=== PATIENT | male | born 1975 | race Caucasian/White ===

== ENCOUNTER 2023-11-13 08:21 | Emergency (ER) | payer OTHER, SELFPAY ==
--- NOTE | ~2023-11-13 | CT_ITS ---
EXAMINATION: CT abdomen pelvis w con INDICATION: Hematuria TECHNIQUE: Computed tomographic images of the abdomen and pelvis were obtained after the administrati on of 100 cc of Omnipaque 350 intravenous contrast. The dose-length product (DLP) was 1560.55 mGy-cm. Automated exposure control and iterative reconstruction technique were employed. COMPARISON: None available FINDINGS: Minimal dependent atelectasis is present in the lung bases. The heart size is normal. The l iver is diffusely low in attenuation when compared with the spleen, consistent with hepatic steatosis . The spleen, pancreas, gallbladder, and adrenal glands are normal. The right kidney is unremarkable. There is a 4 mm nonobstructing stone of the left kidney lower pole. No pathologically enlarged abdom inal or pelvic lymph nodes are identified. No free intraperitoneal gas or evidence of bowel obstructi on. The appendix is normal. There are bilateral renal hernias containing fat. IMPRESSION: 1. Nonobstructing left nephrolithiasis. 2. Diffuse hepatic steatosis. Reviewed, dictated and finalized at location [employer]
[2023-11-13 08:43] VITALS: BP 157/96; PULSE 76; RESP 18; TEMP 36.6; O2SAT 95
[2023-11-13 08:57] LABS: Glucose Point of Care 332 mg/dl (65-105)
[2023-11-13 09:17] LABS: Basophils Percent Auto 0.6 % (0.2-1.2); Eosinophils Absolute Auto 0.1 K/mm3 (0-0.3); Hematocrit 42.8 % (42.0-52.0); Hemoglobin 15.2 g/dL (14.0-18.0); Immature Granulocyte Absolute 0.05 K/mm3 (0.00-0.031); Immature Granulocyte Percent A 0.7 % (0-0.5); Lymphocytes Absolute Auto 1.52 K/mm3 (0.9-3.2); Lymphocytes Percent Auto 21.8 % (18.3-44.2); Mean Corpuscular HGB Conc 35.5 g/dl (32-36); Mean Corpuscular Hemoglobin 33.3 pg (26-34); Mean Corpuscular Volume 93.7 fl (80-100); Mean Platelet Volume 11.9 fl (7.4-10.4); Monocytes Absolute Auto 0.4 K/mm3 (0.1-0.6); Monocytes Percent Auto 6.2 % (2.6-8.5); Neutrophils Absolute Auto 4.8 K/mm3 (1.3-6.7); Neutrophils Percent Auto 68.7 % (45.5-73.1); Platelet Count Result 217 k/mm3 (150-375); Red Blood Count 4.57 M/mm3 (4.6-6.20); Red Cell Distribution Width 12.6 % (11.5-14.5)
[2023-11-13 09:30] LABS: Alanine Aminotransferase 56 U/L (6-50); Albumin Level 3.9 g/dL (3.5-5.1); Alkaline Phosphatase 63 U/L (38-126); Anion Gap 7 mmol/L (8-16); Aspartate Amino Transferase 43 U/L (17-59); Bilirubin,Total 0.8 mg/dL (0.2-1.3); Blood Urea Nitrogen 10 mg/dL (9-20); Calcium 9.2 mg/dL (8.4-10.2); Carbon Dioxide 24 mmol/L (22-30); Chloride 103 mmol/L (98-107); Estimated CRCL calculation 184 ml/min; Estimated Glomerular Filt Rate > 60; Glucose 277 mg/dL (65-110); Potassium 4.1 mmol/L (3.4-5.0); Sodium 134 mmol/L (137-145)
--- NOTE | 2023-11-13 09:48 | ED.RECABL ---
HPI - Recheck/Abnormal Lab/Rx General Chief Complaint: Recheck/Abnormal Lab/Rx Stated Complaint: high blood sugar Time Seen by Provider: 11/13/23 09:08 Source: patient Mode of arrival: ambulatory Limitations: no limitations History of Present Illness HPI narrative: This is a 48-year-old male that presents to the emergency department for elevated blood sugars. Reports he was recently diagnosed with diabetes at an urgent care. Started on metformin 500 mg twice a day. His blood sugars have continued to be in the 300s. He does have an appointment next week to establish with a primary provider. He was also diagnosed with a UTI and started on Macrobid. He reports no concern for STDs. He has continued to have blood in his urine. Denies fever, vomiting, flank pain or dysuria. Related Data Allergies Allergy/AdvReac Type Severity Reaction Status Date / Time No Known Allergies Allergy Verified 11/13/23 08:49 Review of Systems Review of Systems: CONSTITUTIONAL: Denies fever GASTROINTESTINAL: Denies abdominal pain, nausea, vomiting GENITOURINARY: Reports hematuria. Denies dysuria All systems reviewed & are unremarkable except as noted in HPI and below PMFSH Past Medical History Medical History (Updated 11/13/23 @ 12:35 by Gita Patel PA-C) History of diabetes mellitus Social History Social History (Updated 11/13/23 @ 10:08 by Gita Patel PA-C) Substance use: never Exam Narrative: GENERAL: Well-appearing, well-nourished, and in no acute distress. HEAD: Normocephalic, atraumatic. EYES: EOMI. CHEST: Clear to auscultation. No respiratory distress. No wheezes rales or rhonchi HEART: Regular rate and rhythm. No murmur heard. Normal peripheral pulses. ABDOMEN: Soft, nontender, nondistended, normal active bowel sounds. No CVA tenderness EXTREMITIES: Normal range of motion. No edema. SKIN: Warm, dry, no rash. NEURO: No focal deficits. Alert and oriented x3. PSYCH: Normal mood and affect Course Course Emergency Course: Patient updated on his workup and agrees with plan of care Vital Signs Vital signs: Vital Signs Temperature 97.8 F 11/13/23 08:43 Pulse Rate 76 11/13/23 08:43 Respiratory Rate 18 11/13/23 08:43 Blood Pressure 157/96 H 02/10/24 08:43 Pulse Oximetry 95 11/13/23 08:43 Oxygen Delivery Room Air 11/13/23 08:43 Temperature 97.8 F 11/13/23 08:43 Pulse Rate 84 11/13/23 11:27 Respiratory Rate 18 11/13/23 11:27 Blood Pressure 154/107 H 11/13/23 11:27 Pulse Oximetry 98 11/13/23 11:27 Oxygen Delivery Room Air 11/13/23 08:43 MDM - Recheck/Abnormal Lab/Rx MDM Narrative Medical decision making narrative: Patient presents to the ER for elevated blood glucose. Recently diagnosed with DM at an Urgent care. Started on Metformin 500mg BID. reporting his blood sugars have been in the 300s at home. He is afebrile and nontoxic appearing. His vitals are stable. Cbc without leukocytosis. Metabolic panel with blood glucose of 277. No other concerning findings. UA with red blood cells, no leuk esterase or nitrates. No white blood cells. CT abdomen and pelvis shows nonobstructing left nephrolithiasis and hepatic steatosis. Patient was updated on his workup. He did report he just urinated and he was no longer able to see blood in his urine. instructed to finish his antibiotic as prescribed and continue to monitor his blood sugar at home. He is to follow up with his primary provider for further management of his diabetes. Will be given follow-up with urology if needed Differential Diagnosis Differential diagnosis: Likely other (UTI, hematuria, kidney stone, bladder cancer, kidney cancer, DM, DKA) Lab Data Attestation: I reviewed the patient's lab results. 11/13/23 09:11 11/13/23 09:11 Labs: Lab Results 11/13/23 11/13/23 11/13/23 Range/Units 08:41 09:11 10:57 WBC 7.0 (4.5-10.0) K/mm3 RBC 4.57 L (4.6-6.20) M/mm3
[2023-11-13 10:10] LABS: Hemoglobin A1C 11.7 % (<5.7)
[2023-11-13 11:17] LABS: Appearance Urine Clear (Clear); Bacteria Urine None Seen /hpf; Bilirubin Urine Negative (Negative); Blood Urine 3+ (Negative); Color Urine Yellow (Yellow); Glucose Urine UA 2+ mg/dL (Negative); Ketones Urine 1+ mg/dL (Negative); Leukocyte Esterase Ur Negative LEU/UL (Negative); Need Manual Microscopic Reviewed; Nitrate Urine Negative (Negative); Non Pathogenic Casts 0-2; Protein Urine 1+ mg/dL (Negative); RBC Urine 51-100 /hpf (0-2); Specific Grav Ur 1.006 (1.001-1.035); Squamous Epithelial Cell Urine None seen /hpf (Few); Urobilinogen Urine 0.2 mg/dL (<2.0); WBC Urine 0-5 /hpf; pH Urine 6.5 (5.0-9.0)
[2023-11-13 11:18] LABS: Add Urine Microscopic? YES
[2023-11-13 11:27] VITALS: BP 154/107; PULSE 84; RESP 18; O2SAT 98
[2023-11-13 13:25] VITALS: PULSE 82; RESP 20; O2SAT 98
== END 2023-11-13 13:26 | disposition home or self-care (01) ==
PROVIDERS: Emergency Provider Physician Assistant
DX: R31.0 Gross hematuria (principal); E11.65 Type 2 diabetes mellitus with hyperglycemia
CPT/HCPCS: 36415; 74177; 80053; 81001; 82948; 83036; 85025; 99284; Q9967